=== PATIENT | male | born 1960 | race Caucasian/White ===

== ENCOUNTER 2025-03-02 10:22 | Outpatient (CLI) | payer BC, SELFPAY ==
--- NOTE | ~2025-03-02 | XR_ITS ---
Clinical Indication: Chest pain PA and lateral views of the chest: Comparison: None Findings: The lungs are clear, without evidence of focal consolidation or pleural effusion. Cardiome diastinal silhouette is within normal limits. Bones and soft tissues are unremarkable. Impression: Normal chest. Reviewed, dictated and finalized at location . Impression: Normal chest.
--- OUTSIDE RECORDS SUMMARY | 2025-03-02 11:52 | XMS_ITS | Clinical Summary ---
Author Organization [facility] Address [address] [place] [address] Care Team Providers Care It Lead Name Role Phone Jairo Barrera Primary Care Provider [phone] Allergies Active Allergy Reactions Criticality Noted Date Comments Aspirin Itching Low 12/15/2023 Penicillins Rash Medium 03/12/2021 Medications candesartan (ATACAND) 16 mg tablet 7 Active ergocalciferol, vitamin D2, (VITAMIN D2 ORAL) Active fluvastatin XL (LESCOL XL) 80 mg 24 hr tablet 4 Active testosterone 1.62 % (20.25 mg/1.25 gram) gel in packet 1 Active metFORMIN XR (GLUCOPHAGE XR) 500 mg 24 hr tablet Take 1 tablet (500 mg total) by mouth 2 (two) times a day [address] (NexIUM) 20 mg capsule Take 1 capsule (20 mg total) by mouth 2 (two) times a day 60 capsule 3 2 Active fluticasone propionate (FLONASE) 50 mcg/actuation nasal spray Administer 1 spray into each nostril daily 1 each 3 2 Active sodium bicarb-sodium chloride packet 1 packet by sinus irrigation route daily 90 packet 2 Active dapagliflozin propanediol (FARXIGA) 10 mg tablet 1 tablet (10 mg total) daily Active -woze- Lmfolate-algal 27 mg iron-1.13 mg-581.92 mg capsule Take by mouth Active tamsulosin (FLOMAX) 0.4 mg extended release capsule Take 1 capsule (0.4 mg total) by mouth daily 4 Active testosterone 20.25 mg/1.25 gram (1.62 %) gel in metered-dose pump APPLY 4 PUMPS OVER MAX AREA OF ONE UPPER ARM AND SHOULDER DAILY 4 Active neomycin-polymyx in-dexAMETHasone (MAXITROL) 3.5mg/mL-10,000 unit/mL-0.1 % ophthalmic suspension INSTILL 1 DROP INTO LEFT EYE 4 TIMES DAILY FOR 7 DAYS FOR INFECTION 4 Active Active Problems Problem Noted Date Diagnosed Date Globus sensation 08/26/2024 Post-nasal drainage 08/26/2024 Essential hypertension 12/15/2023 Mixed hyperlipidemia 12/15/2023 Family history of ischemic heart disease 024 Chest pressure 03/20/2022 Reflux gastritis 03/20/2022 Allergic rhinitis 03/20/2022 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 E[facility] Medical Office Building [address] [place] [address] Jeanette Dolan MD Cough, unspecified type (Primary Dx); Lesion of vocal fold from Last 3 Months Immunizations Immunization Administration Dates Next Due Pfizer SARS-CoV-2 Monovalent Vaccination (12+ Yrs) PURPLE 12/05/2020,11/14/2020 Surgical History Surgery Date Site/Laterality Comments HERNIA REPAIR Right HERNIA REPAIR Medical History Medical History Date Comments Hypertension Sleep apnea Family History Medical History Relation Name Comments Cancer Brother Jude Joy Heart disease Brother Jude Joy No Known Problems Father Heart disease Mother Relation Name Status Comments Brother Jude Joy Father Mother Social History Tobacco Use Types Packs/Day Years Used Date Smoking Tobacco: Never Smokeless Tobacco: Never Sex and Gender Information Value Date Recorded Sex Assigned at Not on file Legal Sex Male 1:07 PM CDT Gender Identity Male 03/11/2021 9:05 AM CDT Sexual Orientation Not on file Obstetrics History Last Filed Vital Signs Vital Sign Reading Time Taken Comments Blood Pressure 128/78 08/16/2024 8:16 AM PRODUCT SUPPORT MANAGER Pulse 70 08/16/2024 8:16 AM PRODUCT SUPPORT MANAGER Temperature - - Respiratory Rate - - Oxygen Saturation 97% 08/16/2024 8:16 AM PRODUCT SUPPORT MANAGER Inhaled Oxygen Concentration - - Weight 91.6 kg (202 lb) 08/16/2024 8:16 AM PRODUCT SUPPORT MANAGER Height 170.2 cm (5' 7) 08/16/2024 8:16 AM PRODUCT SUPPORT MANAGER Body Mass Index 31.64 08/16/2024 8:16 AM PRODUCT SUPPORT MANAGER Plan of Treatment Health Maintenance Due Date Last Done Comments Colon Cancer Screening-Colonoscopy 1960 Depression Screening 1960 Hepatitis C Screening 1960 Prostate Cancer Screening-PSA 1960 DTaP/Tdap/Td Vaccine (1 - Tdap) 12/04/1971 Hepatitis B Screening 1978 Regular Well Visit/Exam 18-64 1978 Zoster Vaccine (1 of 2) 2010 Covid-19 Vaccine ( season) 2024 12/05/2020, 11/14/2020 Influenza Vaccine Completed 06/21/2024, , 07/23/2022, Additional history exists Pneumococcal vaccine <65 Aged Out No longer eligible based on patient's age to complete this topic [place] Care Teams It Lead Relationship Specialty Start Date End Date Jairo Barrera DO [address] [facility] [address] [place], [place] [id number] PCP - General Internal Medicine 08/25/24
--- OUTSIDE RECORDS SUMMARY | 2025-03-02 11:52 | XMS_ITS | Referral Summary ---
Author Organization [facility] Address [address] [place] [address] Care Team Providers Care Squad Leader Name Role Phone Jairo Barrera DO Primary Care Provider [phone] Encounters Date Type Department Care Team Description 02/09/2025 9:40 AM CDT Office Visit [facility] ENT [address] [facility] Medical Office Building [address] [place] [address] Jeanette Dolan MD Cough, unspecified type (Primary Dx); Lesion of vocal fold from Last 3 Months Allergies Active Allergy Reactions Criticality Noted Date [...] 1 tablet (10 mg total) daily Active -pbbo- Lmfolate-algal 27 mg iron-1.13 mg-581.92 mg capsule [...] 03/20/2022 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 Immunizations Immunization Administration Dates Next Due Pfizer SARS-CoV-2 Monovalent Vaccination (12+ Yrs) PURPLE 12/05/2020,11/14/2020 Social History Tobacco Use Types Packs/Day Years Used Date Smoking Tobacco: Never Smokeless Tobacco: Never Sex and Gender Information Value Date Recorded Sex Assigned at Not on file Legal Sex Male 1:07 PM CDT Gender Identity Male 03/11/2021 9:05 AM CDT Sexual Orientation Not on file Last Filed Vital Signs Vital Sign Reading Time Taken Comments Blood Pressure 128/78 08/16/2024 8:16 AM DENITRATOR Pulse 70 08/16/2024 8:16 AM DENITRATOR Temperature - - Respiratory Rate - - Oxygen Saturation 97% 08/16/2024 8:16 AM DENITRATOR Inhaled Oxygen Concentration - - Weight 91.6 kg (202 lb) 08/16/2024 8:16 AM DENITRATOR Height 170.2 cm (5' 7) 08/16/2024 8:16 AM DENITRATOR Body Mass Index 31.64 08/16/2024 8:16 AM DENITRATOR Plan of Treatment Not on file [place] Care Teams Squad Leader Relationship Specialty Start Date End Date Jairo Barrera DO [address] [facility] [address] [place] [address] PCP - General Internal Medicine 08/25/24
--- OUTSIDE RECORDS SUMMARY | 2025-03-02 11:52 | XMS_ITS | Clinical Summary ---
Author Organization [facility] Address [address] [facility] [address] [place] [address] Care Team Providers Care Radiator Core Tester Name Role Phone Unavailable Primary Care Provider Unavailabl e Immunizations Immunization Administration Dates Next Due INFLUENZA VACCINE QUADRIVALENT 6 MOS UP PF IM ,07/23/2022 INFLUENZA VACCINE TRIVALENT SPLIT VIRUS, (6 MOS UP), 0.5ML (PF), IM 06/21/2024 Social History Tobacco Use Types Packs/Day Years Used Date Smoking Tobacco: Never Assessed Sex and Gender Information Value Date Recorded Sex Assigned at Not on file Legal Sex Male 11:41 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
--- OUTSIDE RECORDS SUMMARY | 2025-03-02 11:52 | XMS_ITS | Clinical Summary ---
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 Gender Identity Not on file Sexual Orientation Not on file Plan of Treatment Health Maintenance Due Date Last Done Comments Hepatitis C Virus (HCV) Screening 1960 TdaP Immunization 1960 Colonoscopy 2005 Colorectal Cancer Screening 2005 Cologuard 2010 Immunochemical Fecal Occult Blood 2010 Pneumococcal Immunization (5 0+ years) (1 of 1 - PCV) 2010 Zoster Immunization (1 of 2) 2010 PSA Discussion 12/04/2015 Influenza Immunization (#1) 2024 06/04/2020 SARS-COV-2 Immunization (1 - 2023- season) 2024 Respiratory Syncytial Virus (RSV) Immunization (Adult) (1 - 1-dose 75+ series) 12/04/2035 Hepatitis B Immunization Aged Out No longer eligible based on patient's age to complete this topic Meningococcal Immunization (ACWY) Aged Out No longer eligible based on patient's age to complete this topic Pneumococcal Immunization Combined Aged Out No longer eligible based on patient's age to complete this topic Rotavirus Immunization Aged Out No lo nger eligible based on patient's age to complete this topic
== END 2025-03-02 10:23 | disposition home or self-care (01) ==
PROVIDERS: PCP Internal Medicine; Visit Provider Internal Medicine
DX: R07.9 Chest pain, unspecified (principal)
CPT/HCPCS: 71046

== ENCOUNTER 2025-08-01 13:29 | Outpatient (CLI) | payer BC, SELFPAY ==
--- OUTSIDE RECORDS SUMMARY | 2025-08-01 22:46 | XMS_ITS | Clinical Summary ---
Author Organization [facility] Address [address] [place] [address] Care Team Providers Care Environmental Communications Specialist Name Role Phone Jairo Barrera Primary Care Provider [phone] Allergies Active Allergy Reactions Criticality Noted Date [...] 1 tablet (10 mg total) daily Active adwxyflg68-byss- Lmfolate-algal 27 mg iron-1.13 mg-581.92 mg capsule [...] Encounters Date Type Department Care Team Description 05/12/2025 9:40 AM CDT Office Visit [facility] ENT [address] [facility] Medical Office Building [address] [place] [phone] Jeanette Dolan MD Vocal cord granuloma (Primary Dx); Throat irritation from Last 3 Months Immunizations Immunization Administration [...] Comments Blood Pressure 128/78 08/16/2024 8:16 AM CAPSULE FILLING MACHINE OPERATOR Pulse 70 08/16/2024 8:16 AM CAPSULE FILLING MACHINE OPERATOR Temperature - - Respiratory Rate - - Oxygen Saturation 97% 08/16/2024 8:16 AM CAPSULE FILLING MACHINE OPERATOR Inhaled Oxygen Concentration - - Weight 91.6 kg (202 lb) 08/16/2024 8:16 AM CAPSULE FILLING MACHINE OPERATOR Height 170.2 cm (5' 7) 08/16/2024 8:16 AM CAPSULE FILLING MACHINE OPERATOR Body Mass Index 31.64 08/16/2024 8:16 AM CAPSULE FILLING MACHINE OPERATOR Plan of Treatment Health Maintenance Due Date Last Done Comments Colon Cancer Screening-Colonoscopy 1960 Depression Screening 1960 Hepatitis C Screening 1960 Prostate Cancer Screening-PSA 1960 DTaP/Tdap/Td Vaccine (1 - Tdap) 12/04/1971 Hepatitis B Screening 1978 Regular Well Visit/Exam 18-64 1978 Zoster Vaccine (1 of 2) 2010 Covid-19 Vaccine (3 - season) 2025 12/05/2020, 11/14/2020 Influenza Vaccine (#1) 2025 , 06/19/2023, 07/23/2022, Additional history exists Pneumococcal vaccine <65 Aged Out No longer eligible based on patient's age to complete this topic [place] Care Teams Environmental Communications Specialist Relationship Specialty Start Date End Date Jairo Barrera DO PCP - General Internal Medicine 08/25/24
== END 2025-08-01 13:30 | disposition home or self-care (01) ==
LOC: ANHAUDASC 13:30
PROVIDERS: PCP Internal Medicine; Visit Provider Otolaryngology Otolaryngology/Facial Plastic Surgery
DX: H90.3 Sensorineural hearing loss, bilateral (principal)
CPT/HCPCS: 92557

== ENCOUNTER 2025-08-17 12:51 | Outpatient (CLI) | payer BC, SELFPAY ==
--- NOTE | ~2025-08-17 | CT_ITS ---
EXAMINATION: CT sinus wo con COMPARISON: None HISTORY: J32.9 - Chronic sinusitis, unspecified TECHNIQUE: Axial images were obtained without IV contrast. Sagittal, coronal reconstruction images were obtained from the axial views. CT scan performed using dose optimization techniques including the following automated exposure control; adjustment of mA and/or kV; use of iterative reconstruction technique. Automatic exposure control was used to reduce radiation dose. Permanent radiation dose record is archived to PACS. FINDINGS: Visualized brain parenchyma optic globes and soft tissues appear unremarkable. Frontal sinuses are diminutive. Minimal mucosal thickening noted in the ethmoidal air cells. The maxillary sinuses are unremarkable. The sphenoid sinuses are unremarkable. The ostiomeatal complexes are patent. Nasal septum is deviated to the right. There is thickening of the turbinates and mild narrowing of the nasal cavities. No osseous destruction or wall thickening is identified. IMPRESSION: No significant sinusitis Reviewed, dictated and finalized at location P. MODEL IMPRESSION: No significant sinusitis
--- OUTSIDE RECORDS SUMMARY | 2025-08-17 13:58 | XMS_ITS | Clinical Summary ---
Author Organization [facility] Address [address] [place] [address] Care Team Providers Care Civil Rights Attorney Name Role Phone Jairo Barrera Primary Care Provider [phone] Allergies Active Allergy Reactions Criticality Noted Date [...] 1 tablet (10 mg total) daily Active qoyefmpm76-nnax- Lmfolate-algal 27 mg iron-1.13 mg-581.92 mg capsule [...] Comments Blood Pressure 128/78 08/16/2024 8:16 AM CURATORIAL SPECIALIST Pulse 70 08/16/2024 8:16 AM CURATORIAL SPECIALIST Temperature - - Respiratory Rate - - Oxygen Saturation 97% 08/16/2024 8:16 AM CURATORIAL SPECIALIST Inhaled Oxygen Concentration - - Weight 91.6 kg (202 lb) 08/16/2024 8:16 AM CURATORIAL SPECIALIST Height 170.2 cm (5' 7) 08/16/2024 8:16 AM CURATORIAL SPECIALIST Body Mass Index 31.64 08/16/2024 8:16 AM CURATORIAL SPECIALIST Plan of Treatment Health Maintenance Due Date [...] [place] Care Teams Civil Rights Attorney Relationship Specialty Start Date End Date Jairo Barrera DO PCP - General Internal Medicine 08/25/24
--- OUTSIDE RECORDS SUMMARY | 2025-08-17 13:58 | XMS_ITS | Clinical Summary ---
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 Gender Identity Not on file Sexual Orientation Not on file Plan of Treatment Health Maintenance Due Date Last Done Comments Hepatitis C Virus (HCV) Screening 1960 TdaP Immunization 1960 Cologuard 2005 Colonoscopy 2005 Colorectal Cancer Screening 2005 Immunochemical Fecal Occult Blood 2005 Pneumococcal Immunization (5 0+ years) (1 of 1 - PCV) 2010 Zoster Immunization (1 of 2) 2010 Influenza Immunization (#1) 2025 06/04/2020 SARS-COV-2 Immunization (1 - season) 2025 Respiratory Syncytial Virus (RSV) Immunization (Adult) (1 - 1-dose 75+ series) 12/04/2035 Hepatitis B Immunization Aged Out No longer eligible based on patient's age to complete this topic Human Papillomavirus (HPV) Immunization Aged Out No longer eligible b ased on patient's age to complete this topic Meningococcal Immunization (ACWY) Aged Out No longer eligible based on patient's age to complete this topic Rotavirus Immunization Aged Out No lo nger eligible based on patient's age to complete this topic
--- OUTSIDE RECORDS SUMMARY | 2025-08-17 13:58 | XMS_ITS | Clinical Summary ---
Author Organization [facility] Address [address] [facility] [address] [place] [address] Care Team Providers Care Deflash And Wash Operator Name Role Phone Unavailable Primary Care Provider Unavailabl e Encounters Date Type Department Care Team Description 05/31/2025 External Device Data ST[facility] ABSTRACTION Provider, Abstract from Last 3 Months Immunizations Immunization Administration Dates Next Due INFLUENZA VACCINE QUADRIVALENT 6 MOS UP PF IM ,07/23/2022 INFLUENZA VACCINE TRIVALENT SPLIT VIRUS, (6 MOS UP), 0.5ML (PF), IM 06/18/2025,06/21/2024 Social History Tobacco Use Types Packs/Day Years Used Date Smoking Tobacco: Never Assessed Sex and Gender Information Value Date Recorded Sex Assigned at Not on file Legal Sex Male 11:41 AM 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
== END 2025-08-17 12:52 | disposition home or self-care (01) ==
PROVIDERS: PCP Internal Medicine; Visit Provider Otolaryngology Otolaryngology/Facial Plastic Surgery
DX: J32.9 Chronic sinusitis, unspecified (principal)
CPT/HCPCS: 70486